=== PATIENT | female | born 1985 | race Caucasian/White ===

== ENCOUNTER 2020-03-13 11:07 | Outpatient (CLI) | payer OTHER ==
[2020-03-13] MEDS ORDERED: ONDANSETRON 4 MG/2 ML VIAL IVP PRN (11:36)
[2020-03-13] MEDS ORDERED: SODIUM CHLORIDE 0.9% 1,000 ML IV SCH (11:45)
[2020-03-13 12:21] VITALS: BP 137/92; PULSE 103; RESP 16; TEMP 97.7
--- NOTE | 2020-03-18 08:00 | P.MSEPDOC ---
Presenting Problems - Arrival Data Date of Arrival on Unit: 03/13/20 Time of Arrival on Unit: 11:07 - Complaint OB-Reason for Admission/Chief Complaint: Other Comment: patient sent from ER in severe back and abdominal pain. Medical History - Information : 4 Para: 3 Term: 3 : 0 Abortions: Spontaneous or Elective: 0 Number of Living Children: 3 - Gestational Age Gestational Age by PAOLO (wks/days): 25 Weeks and 0 Days - History Complications: No Care Comment: patient reports no care, recently went to Review of Systems - Review of Systems Constitutional: No problems Breast: No problems ENT: No problems Cardiovascular: No problems Respiratory: No problems Gastrointestinal: Pain Genitourinary: Dysuria, Urgency, Increased frequency Musculoskeletal: No problems Neurological: No problems Skin: No problems Comment: severe back pain "all over" Vital Signs - Temperature Temperature: 97.7 F Temperature Source: Temporal Artery Scan - Pulse Right Brachial Pulse Rate: 103 Pulse Assessment Method: Automatic Cuff - Respirations Respiratory Rate: 16 Oxygen Delivery Method: Room Air - Blood Pressure Right Arm Blood Pressure: 137/92 Blood Pressure Mean: 107 Blood Pressure Source: Automatic Cuff Medical Screen Scoring (Pre) - Cervical Exam Dilation: Exam Deferred Effacement: Exam Deferred Membranes: Intact - Uterine Contractions Frequency: N/A Duration: N/A Intensity: N/A - Maternal Vital Signs Maternal Temperature: N/A Maternal Blood Pressure: Diastolic > 89 = 1 Signs of Preeclampsia: N/A Maternal Respirations: > than 20 = 3 - Maternal Trauma Maternal Trauma: N/A - Assessment - Baby A Baseline FHR: 150 Heart Rate - NICHD Category: Category I (Normal) = 0 Position: N/A Station: N/A - Total Score - Baby A Total Score - Baby A: 4 - Total Score - Baby B Total Score - Baby B: 4 - Total Score - Baby C Total Score - Baby C: 4 - Level of Risk - Baby A Level of Risk - Baby A: Low (0-5) - Level of Risk - Baby B Level of Risk - Baby B: Low (0-5) - Level of Risk - Baby C Level of Risk - Baby C: Low (0-5) Physician Notification (Pre) - Physician Notified Physician Notified Date: 03/13/20 Physician Notified Time: 11:30 New Order Received: Yes - Notification Comment Comment: Orders given for IV hydrating with normal saline, zofran, cbc, lytes, urine drug screen, u/a with culture. Medical Screen Scoring (Post) - Cervical Exam Dilation: Exam Deferred Effacement: Exam Deferred Membranes: Intact - Uterine Contractions Frequency: N/A Duration: N/A Intensity: N/A - Maternal Vital Signs Maternal Temperature: N/A Signs of Preeclampsia: N/A Maternal Respirations: N/A - Pain Assessment Pain Scale Used: Non Verbal Pain Indicators Pain Behavior: Agitated, Angry/Mad, Crying, Upset - Maternal Trauma Maternal Trauma: N/A - Total Score Total Score - Baby A: 0 Total Score - Baby B: 0 Total Score - Baby C: 0 - Post Treatment Level of Risk Post Treatment Level of Risk - Baby A: Low (0-5) Post Treatment Level of Risk - Baby B: Low (0-5) Post Treatment Level of Risk - Baby C: Low (0-5) Physician Notification (Post) - Physician Notified Physician Notified Date: 03/13/20 Physician Notified Time: 12:01 Physician/Practitioner Notified:: Yes Spoke With: Dr. Patino New Order Received: No - Notification Comment Comment: Dr. Patino notified that patient is refusing treatment and leaving AMA. No new orders. Disposition - Disposition OB Disposition: Discharge to home Discharge Date: 03/13/20 Discharge Time: 12:02 I agree with the RN Medical Screening Exam: Yes Physician's MSE Comment: Pt presented complaining of back pain. Nurses note she was thrashing around in the bed in pain and had history of kidney stones. I ordered cbc and cmp as well as IV fluids and UA. Pt states she had heroine last night so UDS was also ordered. IV was accessed with patient calm and appearing comfortable. once the IV was placed she started thrashing again. She demanded pain medication. I did not order pain medication because I did not deem it safe at this point since I dont know what drugs are in her system and it was unclear what the cause of her pain was. Pt then removed her own IV and left AMA. Risk & Benefit of care provided described in d/c instruction: No Diagnosis: PAIN, UNSPECIFIED
== END 2020-03-13 12:02 | disposition left against medical advice (07) ==
LOC: FBPOP 11:07
PROVIDERS: ATTEND Obstetrics & Gynecology
DX: O99.891 Other specified diseases and conditions complicating pregnancy (principal); Z3A.25 25 weeks gestation of pregnancy
CPT/HCPCS: 96360; 96361; 99213

== ENCOUNTER 2020-07-20 20:12 | Emergency (ER) | payer OTHER ==
[2020-07-20 20:51] VITALS: BP 139/97; PULSE 98; RESP 22; TEMP 98.6
--- NOTE | 2020-07-20 21:31 | ED ---
General Adult HPI - General Chief complaint: ENT Stated complaint: Cannot breathe. Time Seen by Provider: 07/20/20 21:02 Source: patient Mode of arrival: ambulatory Limitations: no limitations - History of Present Illness Initial comments: 34-year-old female patient percents to the emergency department today for evaluation of nasal congestion. Patient states for the last 9-10 months she has been experiencing severe nasal congestion. States she cannot pass air through either of her nasal passages. States she does have nasal drainage frequently. States that she has looked inside her nasal passages and there very swollen. She has used several [id number] treatments without success. Denies any fever or chills. Does report maxillary sinus tenderness and discomfort. Denies cough or congestion. - Related Data Previous Rx's Medication Instructions Recorded Azithromycin [Zithromax Z-pack (6 0 mg PO DIRECTED #6 tab 07/20/20 tabs)] Fluticasone Nasal [place] [Flonase 2 spr EA NOSTRIL DAILY #1 bottle 07/20/20 Nasal [place]] Pseudoephedrine 12Hr [Sudafed 12 120 mg PO Q12H #14 tablet.er 07/20/20 Hour] methylPREDNISolone [Medrol Dose 4 mg PO DIRECTED #1 pack 07/20/20 Pack] Allergies Allergy/AdvReac Type Severity Reaction Status Date / Time ciprofloxacin [From Cipro] Allergy Unknown Verified 03/13/20 11:33 iodine Allergy Unknown Verified 03/13/20 11:33 latex Allergy Unknown Verified 03/13/20 11:33 Sulfa (Sulfonamide Allergy Unknown Verified 03/13/20 11:33 Antibiotics) Review of Systems ROS Statement: Those systems with pertinent positive or pertinent negative responses have been documented in the HPI. ROS Other: All systems not noted in ROS Statement are negative. Past Medical History Additional Past Medical History / Comment(s): atrial tachycardia History of Any Multi-Drug Resistant Organisms: None Reported Past Surgical History: Cholecystectomy Past Psychological History: Anxiety, Depression Smoking Status: Never smoker Past Alcohol Use History: None Reported Past Drug Use History: None Reported General Exam Limitations: no limitations General appearance: alert, in no apparent distress, other (Physical well- developed, well-nourished adult female patient in no acute distress.) ENT exam: Present: normal oropharynx, mucous membranes moist, TM's normal bilaterally, other (bilateral nasal passages are grossly pale and swollen, no evidence for foreign body. There is clear nasal discharge noted. Nose is obviously swollen and tender.) Respiratory exam: Present: normal lung sounds bilaterally. Absent: respiratory distress, wheezes, rales, rhonchi, stridor Cardiovascular Exam: Present: regular rate, normal rhythm, normal heart sounds. Absent: systolic murmur, diastolic murmur, rubs, gallop, clicks Neurological exam: Present: alert, oriented X3, CN II-XII intact Psychiatric exam: Present: normal affect, normal mood Skin exam: Present: warm, dry, intact, normal color. Absent: rash Course Vital Signs 07/20/20 20:47 Temperature 98.6 F Pulse Rate 98 Respiratory 22 Rate Blood Pressure 139/97 O2 Sat by Pulse 100 Oximetry Medical Decision Making - Medical Decision Making 34-year-old female patient presents to the emergency department today for evaluation of severe nasal congestion. Physical examination did reveal significantly swollen nasal passages, clear nasal discharge, tender nose and maxillary sinuses. She'll be started on azithromycin and Medrol Dosepak. She is also given prescription for Flonase and decongestant. She is instructed to follow-up with ENT specialist as soon as possible for further evaluation. She is given in [facility] recommendations as well as a recommendation in [place] in case they do not accept her insurance. Return parameters were discussed in detail. She verbalizes understanding and agrees with this plan. Case discussed with my attending Dr. Serna. Disposition Clinical Impression: Nasal swelling Disposition: HOME SELF-CARE Condition: Good Instructions (If sedation given, give patient instructions): Sinusitis (ED) Additional Instructions: Take medications as directed. Follow-up with your care physician for recheck in one to days. Follow-up with ENT specialist for further evaluation as soon as possible. Return to the emergency department for any new, worsening, or concerning symptoms. ENT in [facility], Dr. Diaz - he should accept medicaid if you have trouble in town here. Prescriptions: Fluticasone Nasal [place] [Flonase Nasal [place]] 2 spr EA NOSTRIL DAILY #1 bottle methylPREDNISolone [Medrol Dose Pack] 4 mg PO DIRECTED #1 pack Pseudoephedrine 12Hr [Sudafed 12 Hour] 120 mg PO Q12H #14 tablet.er Azithromycin [Zithromax Z-pack (6 tabs)] 0 mg PO DIRECTED #6 tab Is patient prescribed a controlled substance at d/c from ED?: No Referrals: Abdiel Myers MD [STAFF PHYSICIAN] - 1-2 days Time of Disposition: 21:31
[2020-07-20] MEDS: AZITHROMYCIN 500 MG TAB PO STA (21:44)
[2020-07-20] MEDS: DEXAMETHASONE SOD PHOSPHATE 10 MG/ML 1 ML VIAL IM STA (21:45)
== END 2020-07-20 21:48 | disposition home or self-care (01) ==
LOC: EC 20:12
DX: R22.0 Localized swelling, mass and lump, head (principal); R09.81 Nasal congestion; F41.9 Anxiety disorder, unspecified; F32.9 Major depressive disorder, single episode, unspecified
CPT/HCPCS: 99283; 96372; J1100

== ENCOUNTER 2023-11-03 23:11 | Emergency (ER) | payer OTHER ==
[2023-11-03 23:25] VITALS: RESP 18
--- NOTE | 2023-11-03 23:47 | ED ---
ENT HPI - General Chief complaint: Dental/Oral Stated complaint: Face Pain Time Seen by Provider: 11/03/23 23:36 Source: patient Mode of arrival: ambulatory - History of Present Illness Initial comments: 37-year-old female presenting with chief complaint of left-sided facial pain and swelling. Patient broke multiple teeth to the left lower jaw. She has had progressive worsening of pain and swelling to the left lower jaw. She is having no difficulty breathing or swallowing. No drooling or voice changes. She is trying to get in with her dentist. No fevers or neck pain. No trismus. - Related Data Previous Rx's Medication Instructions Recorded Azithromycin [Zithromax Z-pack (6 0 mg PO DIRECTED #6 tab 07/20/20 tabs)] Fluticasone Nasal [place] [Flonase 2 spr EA NOSTRIL DAILY #1 bottle 07/20/20 Nasal [place]] Pseudoephedrine 12Hr [Sudafed 12 120 mg PO Q12H #14 tablet.er 07/20/20 Hour] methylPREDNISolone [Medrol Dose 4 mg PO DIRECTED #1 pack 07/20/20 Pack] Amoxic-Pot Clav 875-125Mg 1 tab PO Q12HR #20 tablet 10/18/20 [Augmentin 875-125] Cetirizine HCl [Zyrtec] 10 mg PO DAILY #90 tab 10/18/20 Cetirizine HCl/Pseudoephedrine 1 each PO BID #10 tab.er.12h 10/18/20 [Zyrtec-D Tablet] hydrOXYzine HCL [Atarax] 25 mg PO TID #15 tab 10/18/20 Amoxic-Pot Clav 875-125Mg 1 tab PO Q12HR 10 Days #20 tab 11/03/23 [Augmentin 875-125] Allergies Allergy/AdvReac Type Severity Reaction Status Date / Time ciprofloxacin [From Cipro] Allergy Unknown Verified 10/24/20 10:34 iodine Allergy Unknown Verified 10/24/20 10:34 Iodine and Iodide Containing Allergy Anaphylaxis Verified 10/24/20 10:34 Produc latex Allergy Unknown Verified 10/24/20 10:34 Sulfa (Sulfonamide Allergy Unknown Verified 10/24/20 10:34 Antibiotics) Review of Systems ROS Statement: Those systems with pertinent positive or pertinent negative responses have been documented in the HPI. ROS Other: All systems not noted in ROS Statement are negative. Past Medical History Additional Past Medical History / Comment(s): atrial tachycardia, degenerative disc disease History of Any Multi-Drug Resistant Organisms: None Reported Past Surgical History: Cholecystectomy Past Psychological History: Anxiety, Depression, No Psychological Hx Reported Smoking Status: Former smoker, Never smoker General Exam Limitations: no limitations General appearance: alert, in no apparent distress Head exam: Present: atraumatic, normocephalic Eye exam: Present: normal appearance, EOMI Expanded Mouth exam: Present: tongue normal, other (Patient does have swelling to the left lower jaw, no brawny induration to the submandibular space). Absent: drooling, trismus, muffled voice Teeth exam: Present: fractured tooth # Throat exam: normal inspection Neck exam: Present: normal inspection. Absent: meningismus Respiratory exam: Absent: respiratory distress Neurological exam: Present: alert, oriented X3 Psychiatric exam: Present: normal affect, normal mood Skin exam: Present: warm, dry Course Vital Signs 11/03/23 11/03/23 23:18 23:57 Temperature 98.3 F 98.1 F Pulse Rate 104 H 91 Respiratory 18 18 Rate Blood Pressure 135/66 132/67 O2 Sat by Pulse 99 99 Oximetry Medical Decision Making - Medical Decision Making Was pt. sent in by a medical professional or institution (ADDI Rick, COLOR BUFFER, urgent care, hospital, or [facility]...) When possible be specific @ -No Did you speak to anyone other than the patient for history (EMS, parent, family, police, friend...)? What history was obtained from this source @ -No Did you review nursing and triage notes (agree or disagree)? Why? @ -I reviewed and agree with nursing and triage notes Were old charts reviewed (outside hosp., previous admission, EMS record, old EKG, old radiological studies, urgent care reports/EKG's, [facility] records)? Report findings @ -No old charts were reviewed Differential Diagnosis (chest pain, altered mental status, abdominal pain women, abdominal pain men, vaginal bleeding, weakness, fever, dyspnea, syncope, headache, dizziness, GI bleed, back pain, seizure, CVA, palpatations, mental health, musculoskeletal)? @ -Differential includes toothache, dental abscess, Zenon's angina, this is not an all-inclusive list EKG interpreted by me (3pts min.). @ -As above X-rays interpreted by me (1pt min.). @ -None done CT interpreted by me (1pt min.). @ -None done U/S interpreted by me (1pt. min.). @ -None done What testing was considered but not performed or refused? (CT, X-rays, U/S, labs)? Why? @ -None What meds were considered but not given or refused? Why? @ -None Did you discuss the management of the patient with other professionals (professionals i.e. , PA, COLOR BUFFER, lab, RT, psych nurse, child protective services social worker, software lead, teacher, security officer, telephonic case manager)? Give summary @ -No Was smoking cessation discussed for >3mins.? @ -No Was critical care preformed (if so, how long)? @ -No Were there social determinants of health that impacted care today? How? (Homelessness, low income, unemployed, alcoholism, drug addiction, transport ation, low edu. Level, literacy, decrease access to med. care, alf, rehab)? @ -No Was there de-escalation of care discussed even if they declined (Discuss DNR or withdrawal of care, Hospice)? DNR status @ -No What co-morbidities impacted this encounter? (DM, HTN, Smoking, COPD, CAD, Cancer, CVA, ARF, Chemo, Hep., AIDS, mental health diagnosis, sleep apnea, morbid obesity)? @ -None Was patient admitted / discharged? Hospital course, mention meds given and route, prescriptions, significant lab abnormalities, going to OR and other pertinent info. @ -57-year-old female presenting with chief complaint of dental pain and left- sided facial swelling. No red flag symptoms. She does have multiple fractured teeth on exam. No brawny induration. No trismus drooling or voice changes. No difficulty breathing or swallowing. She was started on Augmentin and will follow-up with her dentist. Discharged. Follow-up with PCP. Report back to ER with any new or worsening symptoms. Discussed return parameters and answered all questions. Patient conveyed verbal understanding and agreed to the plan. I discussed this case in detail with my attending Dr. Castro Undiagnosed new problem with uncertain prognosis? @ -No Drug Therapy requiring intensive monitoring for toxicity (Heparin, Nitro, Insulin, Cardizem)? @ -No Were any procedures done? @ -No Diagnosis/symptom? @ -Dental abscess Acute, or Chronic, or Acute on Chronic? @ -Acute Uncomplicated (without systemic symptoms) or Complicated (systemic symptoms)? @ -Uncomplicated Side effects of treatment? @ -No Exacerbation, Progression, or Severe Exacerbation? @ -No Poses a threat to life or bodily function? How? (Chest pain, [place], [place], pneumonia, PE, COPD, DKA, ARF, appy, cholecystitis, CVA, Diverticulitis, Homicidal, Suicidal, threat to staff... and all critical care pts) @ -No Disposition Clinical Impression: Dental abscess Disposition: HOME SELF-CARE Condition: Good Instructions (If sedation given, give patient instructions): Dental Abscess (ED) Additional Instructions: Follow-up with your dentist. Report back to ER with any new or worsening symptoms. Take medication as prescribed Prescriptions: Amoxic-Pot Clav 875-125Mg [Augmentin 875-125] 1 tab PO Q12HR 10 Days #20 tab Is patient prescribed a controlled substance at d/c from ED?: No Referrals: None,Stated [Primary Care Provider] - 1-2 days Time of Disposition: 23:47
[2023-11-03] MEDS: IBUPROFEN 600 MG STARTER PACK 4 TAB BTL PO STA (23:53)
[2023-11-03] MEDS: AMOXIC-POT CLAV 875MG STARTER PACK 2 TAB BTL PO STA (23:54)
[2023-11-03 23:59] VITALS: BP 132/67; PULSE 91; TEMP 98.1
== END 2023-11-04 00:08 | disposition home or self-care (01) ==
LOC: EC 23:11
DX: K04.7 Periapical abscess without sinus (principal); Z88.2 Allergy status to sulfonamides; Z91.041 Radiographic dye allergy status; Z91.040 Latex allergy status; Z88.1 Allergy status to other antibiotic agents
CPT/HCPCS: 99283

== ENCOUNTER 2023-11-23 23:19 | Emergency (ER) | payer OTHER ==
[2023-11-24] MEDS ORDERED: ACET/COD 300 MG/30 MG STARTER PACK 6 TAB BTL PO ONE (00:24)
[2023-11-24] MEDS ORDERED: ONDANSETRON 4 MG ODT STARTER PACK 2 TAB BTL ONE (00:24)
[2023-11-24] MEDS ORDERED: PENICILLIN VK 500MG STARTER 4 TAB BTL ONE (00:24)
== END 2023-11-24 00:33 | disposition home or self-care (01) ==
LOC: EC 23:19
DX: K08.89 Other specified disorders of teeth and supporting structures (principal)
CPT/HCPCS: 99282

== ENCOUNTER 2024-01-01 13:20 | Emergency (ER) | payer OTHER ==
[2024-01-01 13:29] VITALS: TEMP 98.3
[2024-01-01] MEDS: diphenhydrAMINE 50 MG/ML 1 ML VIAL IVP STA (13:58)
[2024-01-01] MEDS: methylPREDNISolone SOD SUCCI 125 MG/2 ML VIAL IV STA (14:00)
[2024-01-01] MEDS: FAMOTIDINE 20 MG/2 ML VIAL IV STA (14:01)
--- NOTE | 2024-01-01 15:15 | ED ---
Allergic Reaction HPI - General Chief complaint: Allergic Reaction Stated complaint: allergic reaction/body rash Time Seen by Provider: 01/01/24 13:31 Source: patient, RN notes reviewed Mode of arrival: ambulatory Limitations: no limitations - History of Present Illness Initial Comments: 38-year-old female presents emergency department with chief complaint of allergic reaction. She woke up with hives today. Patient states she is itchy all over noticed red bumps. Patient states she had no new products she has known allergies to antibiotics latex and iodine. Patient states she was not around or ingested any of these products. Patient states that she did take some Benadryl prior to arrival. Patient offers no other associated symptoms. - Related Data Previous Rx's Medication Instructions Recorded Azithromycin [Zithromax Z-pack (6 0 mg PO DIRECTED #6 tab 07/20/20 tabs)] Fluticasone Nasal [place] [Flonase 2 spr EA NOSTRIL DAILY #1 bottle 07/20/20 Nasal [place]] Pseudoephedrine 12Hr [Sudafed 12 120 mg PO Q12H #14 tablet.er 07/20/20 Hour] methylPREDNISolone [Medrol Dose 4 mg PO DIRECTED #1 pack 07/20/20 Pack] Amoxic-Pot Clav 875-125Mg 1 tab PO Q12HR #20 tablet 10/18/20 [Augmentin 875-125] Cetirizine HCl [Zyrtec] 10 mg PO DAILY #90 tab 10/18/20 Cetirizine HCl/Pseudoephedrine 1 each PO BID #10 tab.er.12h 10/18/20 [Zyrtec-D Tablet] hydrOXYzine HCL [Atarax] 25 mg PO TID #15 tab 10/18/20 Amoxic-Pot Clav 875-125Mg 1 tab PO Q12HR 10 Days #20 tab 11/03/23 [Augmentin 875-125] Famotidine [Pepcid] 20 mg PO BID #10 tablet 01/01/24 diphenhydrAMINE [Benadryl] 50 mg PO QID PRN #20 capsule 01/01/24 predniSONE 50 mg PO DAILY #3 tab 01/01/24 Allergies Allergy/AdvReac Type Severity Reaction Status Date / Time ciprofloxacin [From Cipro] Allergy Unknown Verified 01/01/24 13:28 iodine Allergy Unknown Verified 01/01/24 13:28 Iodine and Iodide Containing Allergy Anaphylaxis Verified 01/01/24 13:28 Produc latex Allergy Unknown Verified 01/01/24 13:28 Sulfa (Sulfonamide Allergy Unknown Verified 01/01/24 13:28 Antibiotics) Review of Systems ROS Statement: Those systems with pertinent positive or pertinent negative responses have been documented in the HPI. ROS Other: All systems not noted in ROS Statement are negative. Past Medical History Additional Past Medical History / Comment(s): atrial tachycardia, degenerative disc disease History of Any Multi-Drug Resistant Organisms: None Reported Past Surgical History: Cholecystectomy Past Psychological History: Anxiety, Depression, No Psychological Hx Reported Smoking Status: Former smoker, Never smoker General Exam Limitations: no limitations General appearance: alert, in no apparent distress Head exam: Present: atraumatic, normocephalic, normal inspection Respiratory exam: Present: normal lung sounds bilaterally. Absent: respiratory distress, wheezes, rales, rhonchi, stridor Cardiovascular Exam: Present: regular rate, normal rhythm, normal heart sounds. Absent: systolic murmur, diastolic murmur, rubs, gallop, clicks GI/Abdominal exam: Present: soft, normal bowel sounds. Absent: distended, tenderness, guarding, rebound, rigid Neurological exam: Present: alert Skin exam: Present: warm, dry, intact, normal color, rash Course Vital Signs 01/01/24 13:25 Temperature 98.3 F Pulse Rate 88 Respiratory 18 Rate Blood Pressure 111/75 O2 Sat by Pulse 99 Oximetry Medical Decision Making - Medical Decision Making Was pt. sent in by a medical professional or institution (, PA, FLORIST MANAGER, urgent care, hospital, or shelter...) When possible be specific @ -No Did you speak to anyone other than the patient for history (EMS, parent, family, police, friend...)? What history was obtained from this source @ -No Did you review nursing and triage notes (agree or disagree)? Why? @ -I reviewed and agree with nursing and triage notes Were old charts reviewed (outside hosp., previous admission, EMS record, old EKG, old radiological studies, urgent care reports/EKG's, shelter records)? Report findings @ -No old charts were reviewed Differential Diagnosis (chest pain, altered mental status, abdominal pain women, abdominal pain men, vaginal bleeding, weakness, fever, dyspnea, syncope, headache, dizziness, GI bleed, back pain, seizure, CVA, palpatations, mental health, musculoskeletal)? @ -Allergic reaction, drug reaction, food allergy EKG interpreted by me (3pts min.). @ -None X-rays interpreted by me (1pt min.). @ -None done CT interpreted by me (1pt min.). @ -None done U/S interpreted by me (1pt. min.). @ -None done What testing was considered but not performed or refused? (CT, X-rays, U/S, labs)? Why? @ -None What meds were considered but not given or refused? Why? @ -None Did you discuss the management of the patient with other professionals (professionals i.e. , PA, FLORIST MANAGER, lab, RT, psych nurse, social services counselor, air marshal, teacher, traffic officer, nurse case management)? Give summary @ -No Was smoking cessation discussed for >3mins.? @ -No Was critical care preformed (if so, how long)? @ -No Were there social determinants of health that impacted care today? How? ( Homelessness, low income, unemployed, alcoholism, drug addiction, transportation, low edu. Level, literacy, decrease access to med. care, penitentiary, rehab)? @ -No Was there de-escalation of care discussed even if they declined (Discuss DNR or withdrawal of care, Hospice)? DNR status @ -No What co-morbidities impacted this encounter? (DM, HTN, Smoking, COPD, CAD, Cancer, CVA, ARF, Chemo, Hep., AIDS, mental health diagnosis, sleep apnea, morbid obesity)? @ -None Was patient admitted / discharged? Hospital course, mention meds given and route, prescriptions, significant lab abnormalities, going to OR and other pertinent info. @ -[Discharge patient feels improved at this time no signs distress to be discharged with steroids, Benadryl and Pepcid. Undiagnosed new problem with uncertain prognosis? @ -No Drug Therapy requiring intensive monitoring for toxicity (Heparin, Nitro, Insulin, Cardizem)? @ -No Were any procedures done? @ -No Diagnosis/symptom? @Urticaria Acute, or Chronic, or Acute on Chronic? @ -Acute Uncomplicated (without systemic symptoms) or Complicated (systemic symptoms)? @ -Uncomplicated Side effects of treatment? @ -No Exacerbation, Progression, or Severe Exacerbation? @ -No Poses a threat to life or bodily function? How? (Chest pain, [place], [place], pneumonia, PE, COPD, DKA, ARF, appy, cholecystitis, CVA, Diverticulitis, Homicidal, Suicidal, threat to staff... and all critical care pts) @ -No Disposition Clinical Impression: Urticaria Disposition: HOME SELF-CARE Condition: Stable Instructions (If sedation given, give patient instructions): Urticaria (ED) Additional Instructions: Please return to the Emergency Department if symptoms worsen or any other concerns. Prescriptions: diphenhydrAMINE [Benadryl] 50 mg PO QID PRN #20 capsule PRN Reason: Allergic Reaction Famotidine [Pepcid] 20 mg PO BID #10 tablet predniSONE 50 mg PO DAILY #3 tab Is patient prescribed a controlled substance at d/c from ED?: No Referrals: None,Stated [Primary Care Provider] - 1-2 days Time of Disposition: 15:15
[2024-01-01 15:52] VITALS: BP 100/64; PULSE 68; RESP 16
== END 2024-01-01 15:52 | disposition home or self-care (01) ==
LOC: EC 13:20
DX: L50.0 Allergic urticaria (principal)
CPT/HCPCS: 96374; 96375; 99283

== ENCOUNTER 2024-01-03 03:41 | Emergency (ER) | payer OTHER ==
[2024-01-03 03:47] VITALS: RESP 18
--- NOTE | 2024-01-03 05:06 | ED ---
General Adult HPI - General Chief complaint: Allergic Reaction Stated complaint: Allergic Rxn (Hives) Time Seen by Provider: 01/03/24 04:44 Source: patient Mode of arrival: ambulatory Limitations: no limitations - History of Present Illness Initial comments: Patient is a healthy 38 y/o female, currently 4 weeks , presenting for concerns for allergic reaction. States that she began noticing hives on her chest, back and arms approximately 1 day prior to arrival. She was seen at an urgent care where she was given a dose of steroids and Benadryl. 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 Began noticing hives again tonight. States she has trialed a new laundry detergent and that is when her symptoms began. Rash appears to be in the areas where her clothes touch and rash reappeared when she put on clothes washed in this detergent. She endorses itching, denies shortness of breath/ FRANKY, throat or tongue swelling, feeling of impending doom, nausea, vomiting or abdominal pain. Denies recent exposures to known antigens. - Related Data Previous Rx's Medication Instructions Recorded Azithromycin [Zithromax Z-pack (6 0 mg PO DIRECTED #6 tab 07/20/20 tabs)] Fluticasone Nasal [place] [Flonase 2 spr EA NOSTRIL DAILY #1 bottle 07/20/20 Nasal [place]] Pseudoephedrine 12Hr [Sudafed 12 120 mg PO Q12H #14 tablet.er 07/20/20 Hour] methylPREDNISolone [Medrol Dose 4 mg PO DIRECTED #1 pack 07/20/20 Pack] Amoxic-Pot Clav 875-125Mg 1 tab PO Q12HR #20 tablet 10/18/20 [Augmentin 875-125] Cetirizine HCl [Zyrtec] 10 mg PO DAILY #90 tab 10/18/20 Cetirizine HCl/Pseudoephedrine 1 each PO BID #10 tab.er.12h 10/18/20 [Zyrtec-D Tablet] hydrOXYzine HCL [Atarax] 25 mg PO TID #15 tab 10/18/20 Amoxic-Pot Clav 875-125Mg 1 tab PO Q12HR 10 Days #20 tab 11/03/23 [Augmentin 875-125] Famotidine [Pepcid] 20 mg PO BID #10 tablet 01/01/24 diphenhydrAMINE [Benadryl] 50 mg PO QID PRN #20 capsule 01/01/24 predniSONE 50 mg PO DAILY #3 tab 01/01/24 Allergies Allergy/AdvReac Type Severity Reaction Status Date / Time ciprofloxacin [From Cipro] Allergy Unknown Verified 01/03/24 03:47 iodine Allergy Unknown Verified 01/03/24 03:47 Iodine and Iodide Containing Allergy Anaphylaxis Verified 01/03/24 03:47 Produc latex Allergy Unknown Verified 01/03/24 03:47 Sulfa (Sulfonamide Allergy Unknown Verified 01/03/24 03:47 Antibiotics) Review of Systems ROS Statement: Those systems with pertinent positive or pertinent negative responses have been documented in the HPI. Past Medical History Additional Past Medical History / Comment(s): atrial tachycardia, degenerative disc disease History of Any Multi-Drug Resistant Organisms: None Reported Past Surgical History: Cholecystectomy Past Psychological History: Anxiety, Depression, No Psychological Hx Reported Smoking Status: Never smoker Past Alcohol Use History: None Reported Past Drug Use History: None Reported General Exam - General Exam Comments Initial Comments: PE: CONSTITUTIONAL: No apparent distress, well appearing SKIN: Warm, dry, no jaundice, scattered hives on chest around neckline of shirt, patch of hives on right abdomen, arms, no blistering lesions, no exudates EYES: Pupils are equally round, extraocular movements intact without nystagmus, clear conjunctiva, non-icteric sclera HENT: Normocephalic, atraumatic, moist mucus membranes, oropharynx clear without exudates, no oropharyngeal edema or tongue swelling NECK: , Full range of motion, normal appearance PULMONARY: Clear to auscultation without wheezes, rhonchi, or rales, normal excursion, no accessory muscle use and no stridor CARDIOVASCULAR: Regular rate, rhythm, normal S1 and S2. No appreciated murmurs, rubs or gallops. Strong radial pulses with intact distal perfusion. No lower extremity edema GASTROINTESTINAL: Soft, active bowel sounds throughout, non-tender, non- distended, no palpable masses, no rebound or guarding. No hepatosplenomegaly MUSCULOSKELETAL: Extremities have no gross deformity, no edema, redness, or swelling. No calf swelling NEUROLOGIC:_a/o x 3, GCS 15, normal mentation and speech. Moves all extremities x 4 without motor or sensory deficit PSYCHIATRIC:_normal mood and affect, thought process is clear and linear Limitations: no limitations Course Vital Signs 01/03/24 01/03/24 01/03/24 03:45 04:50 05:18 Temperature 98.5 F 98.7 F 98.2 F Pulse Rate 82 74 97 Respiratory 18 18 18 Rate Blood Pressure 118/77 110/97 124/72 O2 Sat by Pulse 98 99 100 Oximetry Medical Decision Making - Medical Decision Making Was pt. sent in by a medical professional or institution (ADDI Rick, ABRASIVE GRADER HELPER, urgent care, hospital, or custodial...) When possible be specific @ -No Did you speak to anyone other than the patient for history (EMS, parent, family, police, friend...)? What history was obtained from this source @ -No Did you review nursing and triage notes (agree or disagree)? Why? @ -I reviewed and agree with nursing and triage notes Were old charts reviewed (outside hosp., previous admission, EMS record, old EKG, old radiological studies, urgent care reports/EKG's, custodial records)? Report findings @Reviewed old charts, patient here in November for abdominal pain Differential Diagnosis (chest pain, altered mental status, abdominal pain women, abdominal pain men, vaginal bleeding, weakness, fever, dyspnea, syncope, headache, dizziness, GI bleed, back pain, seizure, CVA, palpatations, mental health, musculoskeletal)? @ -Differential diagnosis remains broad however top considerations include hives secondary to allergic reaction, viral exanthem, arthropod bites, this is not all-inclusive list EKG interpreted by me (3pts min.). @ -As above X-rays interpreted by me (1pt min.). @ -None done CT interpreted by me (1pt min.). @ -None done U/S interpreted by me (1pt. min.). @ -None done What testing was considered but not performed or refused? (CT, X-rays, U/S, labs)? Why? @ -None What meds were considered but not given or refused? Why? @ -None Did you discuss the management of the patient with other professionals (professionals i.e. ADDI Rick, ABRASIVE GRADER HELPER, lab, RT, psych nurse, oncology social work, bail bond agent, teacher, parachute officer, mattress spring encaser)? Give summary @ -No Was smoking cessation discussed for >3mins.? @ -No Was critical care preformed (if so, how long)? @ -No Were there social determinants of health that impacted care today? How? (Homelessness, low income, unemployed, alcoholism, drug addiction, transportation, low edu. Level, literacy, decrease access to med. care, detention, rehab)? @ -No Was there de-escalation of care discussed even if they declined (Discuss DNR or withdrawal of care, Hospice)? @ -No What co-morbidities impacted this encounter? (DM, HTN, Smoking, COPD, CAD, Cancer, CVA, ARF, Chemo, Hep., AIDS, mental health diagnosis, sleep apnea, morbid obesity)? @ -None Was patient admitted / discharged? Hospital course, mention meds given and route, prescriptions, significant lab abnormalities, going to OR and other pertinent info. @ -Hospital course discharged- Patient is a healthy 38-year-old female, 4 weeks presenting today for scattered hives on her skin that began with exposure to a new laundry detergent, had previously resolved with steroid administration. On my assessment patient is well-appearing and in no acute distress. Oropharynx is clear without swelling, lungs are fair to auscultation bilaterally without wheezing, no hyperactive bowel sounds on abdominal exam. Scattered hives along neckline of shirt, abdomen and arms. 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 Discussed with patient plan for Decadron and Pepcid administration here we discussed observation. To ensure further improvement of her [facility] Patient is comfortable discharge without further observation. Given she does not live far from the hospital and will return if any worsening symptoms. Additionally I discussed with the patient to bathe upon arriving home and only using clothes washed in the laundry detergent that she has tolerated in the past. She states that she is currently wearing clothes that were washed in the detergent that appears to be causing her reaction. Patient will be supplied with paper scrubs prior to discharge to ensure further improvement of symptoms. In my medical judgment there is currently no evidence of an immediate life- threatening or surgical condition. Discharge is therefore indicated at this time. Discharge treatment instructions, follow up instructions, and appropriate [facility] department return precautions were discussed with the patient and/or medical decision maker. Patient and/or medical decision maker expressed understanding of and agreed with the treatment plan, follow up instructions, and emergency department return precaution. All patient's and/or medical decision maker's questions were answered. Undiagnosed new problem with uncertain prognosis? @ -No Drug Therapy requiring intensive monitoring for toxicity (Heparin, Nitro, Insulin, Cardizem)? @ -No Were any procedures done? @ -No Diagnosis/symptom? @ -Urticaria Acute, or Chronic, or Acute on Chronic? @ -Acute Uncomplicated (without systemic symptoms) or Complicated (systemic symptoms)? @Uncomplicated Side effects of treatment? @ -No Exacerbation, Progression, or Severe Exacerbation? @ -No Poses a threat to life or bodily function? How? (Chest pain, [place], [place], pneumonia, PE, COPD, DKA, ARF, appy, cholecystitis, CVA, Diverticulitis, Homicidal, Suicidal, threat to staff... and all critical care pts) @ -Unlikely Disposition Clinical Impression: Urticaria Disposition: HOME SELF-CARE Condition: Good Instructions (If sedation given, give patient instructions): Urticaria (ED) Additional Instructions: Every disease is a spectrum and a small chance still exists that a serious condition could develop, for this reason, please monitor yourself closely for new, changing or worsening symptoms, symptoms that do not begin to improve in the next 24 hours, shortness of breath, wheezing, chest pain, nausea and vomiting, feeling of impending doom, [fever], inability to tolerate/keep down fluids or your medications, inability to follow up with outpatient providers as instructed and should you experience these symptoms or should you have any further concerns for your wellbeing please return to the ED or call 911 immediately. Please bathe thoroughly upon returning home and changing to close of not been washed with new detergent. PLEASE call your primary care physician as soon as possible to arrange / discuss plan for followup appointment. Appointment in the next 1-3 days is strongly encouraged if possible. PLEASE let us know here before you leave if there is anything further we can do to be of any assistance. Take care and feel Better! Is patient prescribed a controlled substance at d/c from ED?: No Referrals: None,Stated [Primary Care Provider] - 1-2 days
[2024-01-03] MEDS: dexAMETHasone 2 MG TAB PO STA (05:13)
[2024-01-03] MEDS: FAMOTIDINE 20 MG TAB PO STA (05:13)
[2024-01-03 05:21] VITALS: BP 124/72; PULSE 97; TEMP 98.2
== END 2024-01-03 05:22 | disposition home or self-care (01) ==
LOC: EC 03:41
CPT/HCPCS: 99283